=== PATIENT | female | born 1975 | race Caucasian/White ===

== ENCOUNTER 2016-10-27 21:57 | Emergency (ER) | payer OTHER ==
[~2016-10-27] VITALS: Ht 157.5 cm; Wt 104.0 kg
[~2016-10-27 21:57] MED LIST: AMBIEN10 MG PO; AMITRIPTYLINE H50 MG PO; ASPIR-LOW81 MG PO; ASPIRIN325 MG PO; ECOTRIN325 MG PO; ELAVIL50 MG PO; ENDOCET 5-3251 EACH PO; ESTRADIOL2 MG PO; Ecotrin PO; FLONASE16 G1 BOTH NARES; GABAPENTIN100 MG PO; GABAPENTIN300 MG PO; HYDROCODON-ACE1 EA13 PO; HYDROCODON-ACE1 EAC8 PO; LAMICTAL XR100 MG PO; LAMICTAL XR200 MG PO; LAMICTAL200 MG PO; LAMICTAL25 MG PO; LO-DOSE ASPIRIN81 M2 PO; LaMICtal PO; NORCO 5/3251 TABLET PO; NORCO 7.5/321 TABLET PO; PLAVIX75 MG PO; PRAVASTATIN SOD80 MG PO; SEROQUEL12.5 MG PO; SOMA350 MG PO; STADOL NASAL2.5 ML NS; SUMATRIPTA6 MG/0.51 SC; TOPAMAX100 MG PO; Toprol XL PO; VICODIN HP 11 TABLET PO; VICODIN,LORT1 TABLET PO; Zocor PO
[2016-10-27 23:18] LABS: EOSINOPHIL (%) 0.8 % (0-5); EOSINOPHIL COUNT 0.1 K/uL (0-0.3); HEMATOCRIT 40.8 % (36.0-46.0); IMMATURE GRANULOCYTE (%) 0.1 % (0.0-0.7); INSTRUMENT ABS NEUTROPHIL CT 4.5 K/uL; LYMPHOCYTE COUNT 2.5 K/uL (1.0-2.8); MCH 29.6 PG (29.0-34.0); MCHC 33.6 G/DL (30.0-36.0); MCV 88.1 FL (83-99); MEAN PLAT.VOLUME 9.8 uM^3 (9.5-12.4); MONOCYTE (%) 7.1 % (3-12); MONOCYTE COUNT 0.5 K/uL (0-0.8); NEUTROPHIL (%) 58.8 % (45-76); NEUTROPHIL COUNT 4.5 K/uL (1.8-6.4); PLATELET COUNT 288 K/uL (156-360); RBC DIS.WIDTH-CV 13.3 % (11.8-14.6); RBC DIS.WIDTH-SD 43.3 % (39-53); RED BLOOD COUNT 4.63 M/uL (3.80-5.20); WHITE BLOOD COUNT 7.6 K/uL (4.1-10.2)
[2016-10-27 23:31] LABS: CHLORIDE 105 mEq/L (99-109); POTASSIUM 4.1 mEq/L (3.7-5.4); SODIUM 139 mEq/L (136-147)
[2016-10-27 23:33] LABS: GLUCOSE 100 mg/dL (70-99)
[2016-10-27 23:35] LABS: ANION GAP 11 MEQ/L (2-14)
[2016-10-27 23:37] LABS: GFR ESTIMATE (CALCULATED) > 59 mL/min/
[2016-10-27 23:38] LABS: UREA NITROGEN (BUN) 20 mg/dL (9-23)
[2016-10-27 23:41] LABS: INTER. NORMALIZED RATIO 1.1; PROTHROMBIN TIME 10.8 (9.2-11.2); PTT 27.9 (25-32)
[2016-10-28 00:21] LABS: HDL CHOLESTEROL 43 MG/DL (Desirable>=50); LDL CHOLESTEROL 129 mg/dL (Desirable<100); NON-HDL CHOLESTEROL 167 mg/dL (Desirable<160); TOTAL CHOLESTEROL 210 mg/dL (Desirable<200); TRIGLYCERIDES 191 MG/DL (Normal: <150)
[2016-10-28 00:25] LABS: SAMPLE HEMOLYSIS CHECK 0; SAMPLE ICTERIC CHECK 0; SAMPLE LIPEMIA CHECK 0
[2016-10-28 00:40] LABS: QUANTITATIVE HCG < 4.0 MIU/ML
[2016-10-28 00:42] LABS: ADD MIUA? YES; BILIRUBIN NEGATIVE; BLOOD NEGATIVE; COLOR STRAW ((YELLOW)); GLUCOSE (STRIP) NEGATIVE; KETONES NEGATIVE; LEUKOCYTES TRACE; NITRITE NEGATIVE; PROTEIN (STRIP) NEGATIVE; SPECIFIC GRAVITY 1.025 (1.000-1.030); UROBILINOGEN 0.2 MG/DL (0.2-1.0)
[2016-10-28 00:48] LABS: BACTERIA NONE SEEN /HPF; EPITHELIAL CELLS 1+ /HPF; MUCUS TRACE /LPF; RED BLOOD CELLS 0-5 /HPF (0-5); UCUL ADDED? NO; WHITE BLOOD CELLS 0-5 /HPF (0-5)
[2016-10-28 02:00] VITALS: BP 168/103
[2016-10-28 07:31] LABS: Estimated Average Glucose 105 mg/dL (70-123); HEMOGLOBIN A1c (GLYCOHEMOGLOB) 5.3 % HGB (Below 5.7)
== END 2016-10-28 02:02 | disposition short-term general hospital (02) ==
LOC: EME 21:57
PROVIDERS: Emergency Medicine
DX: I63.9 Cerebral infarction, unspecified (principal); R51 Headache; G40.909 Epilepsy, unspecified, not intractable, without status epilepticus; Z86.73 Personal history of transient ischemic attack (TIA), and cerebral infarction without residual deficits; Z79.01 Long term (current) use of anticoagulants; Z87.442 Personal history of urinary calculi
CPT/HCPCS: 70450; 70496; 70498; 80048; 80061; 81003; 83036; 84702; 85025; 85610; 85730; 93005; 99281; 99285; J0780; J1170; J1200; J7030; J7050

== ENCOUNTER 2016-11-02 03:22 | Emergency (ER) | payer OTHER ==
[~2016-11-02] VITALS: Ht 154.9 cm; Wt 102.0 kg
[2016-11-02 04:37] LABS: HEMATOCRIT 41.3 % (36.0-46.0); MCHC 32.9 G/DL (30.0-36.0); MEAN PLAT.VOLUME 10.1 uM^3 (9.5-12.4); PLATELET COUNT 254 K/uL (156-360); RBC DIS.WIDTH-CV 13.5 % (11.8-14.6); RBC DIS.WIDTH-SD 45.5 % (39-53); RED BLOOD COUNT 4.54 M/uL (3.80-5.20)
[2016-11-02 04:48] LABS: CHLORIDE 110 mEq/L (99-109); INTER. NORMALIZED RATIO 1.1; POTASSIUM 4.1 mEq/L (3.7-5.4); PTT 20.2 (25-32); SODIUM 140 mEq/L (136-147)
[2016-11-02 04:50] LABS: GLUCOSE 94 mg/dL (70-99)
[2016-11-02 04:51] LABS: ANION GAP 9 MEQ/L (2-14)
[2016-11-02 04:52] LABS: TOTAL BILIRUBIN 0.4 mg/dL (0.0-1.0)
[2016-11-02 04:53] LABS: ALKALINE PHOSPHATASE 87 IU/L (3-129)
[2016-11-02 04:54] LABS: GFR ESTIMATE (CALCULATED) > 59 mL/min/
[2016-11-02 04:55] LABS: UREA NITROGEN (BUN) 16 mg/dL (9-23)
[2016-11-02 04:57] LABS: LIPASE 9 U/L (1.0-51.0)
[2016-11-02 06:31] VITALS: BP 117/64
== END 2016-11-02 06:31 | disposition home or self-care (01) ==
LOC: EME 03:22
PROVIDERS: Emergency Medicine
DX: R10.31 Right lower quadrant pain (principal); M25.552 Pain in left hip; G89.18 Other acute postprocedural pain; Z98.890 Other specified postprocedural states; Z79.02 Long term (current) use of antithrombotics/antiplatelets; Z79.82 Long term (current) use of aspirin
CPT/HCPCS: 74177; 80053; 83690; 85027; 85610; 85730; 93926; 99281; 99285; J2270; J2405

== ENCOUNTER 2016-11-23 17:51 | Inpatient (IN) | payer OTHER ==
[~2016-11-23] VITALS: Ht 154.9 cm; Wt 102.3 kg
[2016-11-23] MEDS ORDERED: OXAYDO5 MG PO (18:53)
[2016-11-23 18:56] LABS: EOSINOPHIL (%) 0.8 % (0-5); EOSINOPHIL COUNT 0.1 K/uL (0-0.3); HEMATOCRIT 42.1 % (36.0-46.0); IMMATURE GRANULOCYTE (%) 0.3 % (0.0-0.7); INSTRUMENT ABS NEUTROPHIL CT 5.7 K/uL; LYMPHOCYTE COUNT 1.3 K/uL (1.0-2.8); MCH 29.9 PG (29.0-34.0); MCHC 33.3 G/DL (30.0-36.0); MCV 89.8 FL (83-99); MONOCYTE (%) 4.7 % (3-12); MONOCYTE COUNT 0.4 K/uL (0-0.8); NEUTROPHIL (%) 76.7 % (45-76); NEUTROPHIL COUNT 5.7 K/uL (1.8-6.4); RBC DIS.WIDTH-CV 13.6 % (11.8-14.6); RBC DIS.WIDTH-SD 44.5 % (39-53); RED BLOOD COUNT 4.69 M/uL (3.80-5.20); WHITE BLOOD COUNT 7.4 K/uL (4.1-10.2)
[2016-11-23 19:03] LABS: AMYLASE 33 IU/L (1-118); CHLORIDE 105 mEq/L (99-109); POTASSIUM 3.9 mEq/L (3.7-5.4); SODIUM 137 mEq/L (136-147)
[2016-11-23 19:05] LABS: GLUCOSE 117 mg/dL (70-99)
[2016-11-23 19:06] LABS: ANION GAP 11 MEQ/L (2-14)
[2016-11-23 19:07] LABS: INTER. NORMALIZED RATIO 1.1; PROTHROMBIN TIME 10.7 (9.2-11.2); PTT 22.1 (25-32)
[2016-11-23 19:08] LABS: GFR ESTIMATE (CALCULATED) > 59 mL/min/; SERUM ETHYL ALCOHOL < 10 mg/dL
[2016-11-23 19:09] LABS: UREA NITROGEN (BUN) 16 mg/dL (9-23)
[2016-11-23 19:11] LABS: LIPASE 33 U/L (1.0-51.0)
[2016-11-23 19:15] LABS: TROP-I INTERPRETATION NEGATIVE; TROPONIN-I < 0.01 ng/mL (0.0-0.30)
[2016-11-23 19:17] LABS: QUANTITATIVE HCG < 4.0 MIU/ML
[2016-11-23 19:40] LABS: ABS NEUTROPHIL COUNT 5.5; ANISOCYTOSIS 2+; EOSINOPHIL ABS CT 0; PLATELET CLUMPS PRESENT - PLATELET COUNT APPEARS ADQ.; PLATELET COUNT UNABLE TO REPORT K/uL (156-360)
[2016-11-23 19:40] LABS: ADD MIUA? NO; BILIRUBIN NEGATIVE; BLOOD NEGATIVE; COLOR YELLOW ((YELLOW)); GLUCOSE (STRIP) NEGATIVE; KETONES NEGATIVE; LEUKOCYTES NEGATIVE; NITRITE NEGATIVE; PROTEIN (STRIP) NEGATIVE; SPECIFIC GRAVITY 1.039 (1.000-1.030); UCUL ADDED? NO; UROBILINOGEN 0.2 MG/DL (0.2-1.0)
[2016-11-23] MEDS ORDERED: LIPITOR80 MG PO (19:42)
[2016-11-23] MEDS ORDERED: LEXAPRO20 MG PO (19:43)
[2016-11-23] MEDS ORDERED: MELOXICAM15 MG PO (19:43)
[2016-11-23] MEDS ORDERED: PERCOCET 5/31 TABLET PO (19:43)
[2016-11-23] MEDS ORDERED: ALPRAZOLAM0.5 MG PO (19:44)
[2016-11-23 19:54] LABS: ADD MEDTOX COMMENT Y; AMPHETAMINE NEGATIVE (500 ng/mL); BARBITURATES NEGATIVE (200 ng/mL); BENZODIAZEPINES PRESUMPTIVE POSITIVE (150 ng/mL); COCAINE NEGATIVE (150 ng/mL); INTERNAL CONTROLS VALID? YES; METHADONE NEGATIVE (200 ng/mL); METHAMPHETAMINE NEGATIVE (500 ng/mL); OPIATES (MORPHINE) NEGATIVE (100 ng/mL); OXYCODONE NEGATIVE (100 ng/mL); PHENCYCLIDINE NEGATIVE (25 ng/mL); PROPOXYPHENE NEGATIVE (300 ng/mL); THC CANNABINOIDS NEGATIVE (50 ng/mL); TRICYCLIC ANTIDEPRESSANTS NEGATIVE (300 ng/mL)
[2016-11-23 20:20] LABS: BENZODIAZEPINES, URINE SCREEN POSITIVE (200 ng/mL)
[2016-11-23 22:10] LABS: HDL CHOLESTEROL 47 MG/DL (Desirable>=50); LDL CHOLESTEROL 252 mg/dL (Desirable<100); NON-HDL CHOLESTEROL 309 mg/dL (Desirable<160); TOTAL CHOLESTEROL 356 mg/dL (Desirable<200); TRIGLYCERIDES 283 MG/DL (Normal: <150)
[2016-11-23 22:22] VITALS: BP 126/70
[2016-11-24 03:25] VITALS: BP 139/84
[2016-11-24 06:40] LABS: MCH 30.4 PG (29.0-34.0); MCHC 33.3 G/DL (30.0-36.0); MCV 91.3 FL (83-99); PLATELET COUNT 292 K/uL (156-360); RBC DIS.WIDTH-CV 14.1 % (11.8-14.6); RBC DIS.WIDTH-SD 47.6 % (39-53); RED BLOOD COUNT 4.71 M/uL (3.80-5.20); WHITE BLOOD COUNT 7.2 K/uL (4.1-10.2)
[2016-11-24 06:48] LABS: ALKALINE PHOSPHATASE 113 IU/L (3-129); ANION GAP 8 MEQ/L (2-14); CHLORIDE 107 MEQ/L (99-109); GFR ESTIMATE (CALCULATED) > 59 mL/min/; GLUCOSE 89 mg/dL (70-99); SAMPLE HEMOLYSIS CHECK 0; SAMPLE ICTERIC CHECK 0; SAMPLE LIPEMIA CHECK 0; SODIUM 139 MEQ/L (136-147); TOTAL BILIRUBIN 0.4 MG/DL (0.0-1.0); UREA NITROGEN (BUN) 19 mg/dL (9-23)
[2016-11-24 07:23] LABS: Estimated Average Glucose 108 mg/dL (70-123); HEMOGLOBIN A1c (GLYCOHEMOGLOB) 5.4 % HGB (Below 5.7)
[2016-11-24 08:22] VITALS: BP 115/77
[2016-11-24 11:28] VITALS: BP 117/74
[2016-11-24 18:11] VITALS: BP 130/76
[2016-11-24 19:34] VITALS: BP 114/62
[2016-11-25 03:54] VITALS: BP 111/53
[2016-11-25 08:11] VITALS: BP 126/78
[2016-11-25] MEDS ORDERED: CLOPIDOGREL75 MG PO (09:26)
[2016-11-25] MEDS ORDERED: STADOL NASAL2.5 ML NS (11:16)
== END 2016-11-25 13:30 | disposition home or self-care (01) | DRG 65 ==
LOC: EME 17:51 → 5SOUTH 20:40 → EDOF 20:40 → 5SOUTH 21:46
PROVIDERS: Emergency Medicine; Internal Medicine
DX: I63.9 Cerebral infarction, unspecified (principal); I67.5 Moyamoya disease; G93.89 Other specified disorders of brain; G81.94 Hemiplegia, unspecified affecting left nondominant side; G40.909 Epilepsy, unspecified, not intractable, without status epilepticus; I65.21 Occlusion and stenosis of right carotid artery; M79.7 Fibromyalgia; Z68.41 Body mass index [BMI] 40.0-44.9, adult; Z86.73 Personal history of transient ischemic attack (TIA), and cerebral infarction without residual deficits; Z87.442 Personal history of urinary calculi; F41.9 Anxiety disorder, unspecified; G43.109 Migraine with aura, not intractable, without status migrainosus
CPT/HCPCS: 70450; 70496; 70498; 80048; 80053; 80061; 81003; 82150; 83036; 83690; 84484; 84702; 84999; 85025; 85027; 85610; 85730; 86900; 86901; 92523 GN; 99281; 99285; G0480; J1170; J1644; J2270

== ENCOUNTER 2017-01-01 17:46 | Observation (INO) | payer OTHER ==
[~2017-01-01] VITALS: Ht 154.9 cm; Wt 102.2 kg
[~2017-01-01 17:46] MED LIST changes: +ALPRAZOLAM0.5 MG PO; +CLOPIDOGREL75 MG PO; -GABAPENTIN300 MG PO; +GABAPENTIN400 MG PO; +LEXAPRO20 MG PO; +LIPITOR80 MG PO; +MELOXICAM15 MG PO; +OXAYDO5 MG PO; +PERCOCET 5/31 TABLET PO
[2017-01-01 18:40] LABS: EOSINOPHIL (%) 0.2 % (0-5); HEMATOCRIT 42.1 % (36.0-46.0); IMMATURE GRANULOCYTE (%) 0.6 % (0.0-0.7); IMMATURE GRANULOCYTE COUNT 0.1 K/uL; INSTRUMENT ABS NEUTROPHIL CT 6.1 K/uL; LYMPHOCYTE COUNT 1.6 K/uL (1.0-2.8); MCH 29.8 PG (29.0-34.0); MCV 90.3 FL (83-99); MEAN PLAT.VOLUME 9.5 uM^3 (9.5-12.4); MONOCYTE (%) 4.4 % (3-12); MONOCYTE COUNT 0.4 K/uL (0-0.8); NEUTROPHIL (%) 75.3 % (45-76); NEUTROPHIL COUNT 6.1 K/uL (1.8-6.4); PLATELET COUNT 264 K/uL (156-360); RBC DIS.WIDTH-CV 13.2 % (11.8-14.6); RBC DIS.WIDTH-SD 43.5 % (39-53); RED BLOOD COUNT 4.66 M/uL (3.80-5.20); WHITE BLOOD COUNT 8.1 K/uL (4.1-10.2)
[2017-01-01 18:46] LABS: PROTHROMBIN TIME 10.5 SEC (10.2-12.9)
[2017-01-01 18:49] LABS: CHLORIDE 108 mEq/L (99-109); POTASSIUM 3.7 mEq/L (3.7-5.4); PTT 28.5 SEC (25-37); SODIUM 142 mEq/L (136-147)
[2017-01-01 18:50] LABS: GLUCOSE 105 mg/dL (70-99)
[2017-01-01 18:52] LABS: ANION GAP 10 MEQ/L (2-14)
[2017-01-01 18:54] LABS: GFR ESTIMATE (CALCULATED) > 59 mL/min/
[2017-01-01 18:55] LABS: UREA NITROGEN (BUN) 12 mg/dL (9-23)
[2017-01-01 19:21] LABS: Estimated Average Glucose 103 mg/dL (70-123); HEMOGLOBIN A1c (GLYCOHEMOGLOB) 5.2 % HGB (Below 5.7)
[2017-01-01] MEDS ORDERED: PLAVIX75 MG PO (19:39)
[2017-01-01 20:26] LABS: ADD MIUA? YES; BILIRUBIN NEGATIVE; BLOOD NEGATIVE; COLOR YELLOW ((YELLOW)); GLUCOSE (STRIP) NEGATIVE; KETONES NEGATIVE; LEUKOCYTES MODERATE; NITRITE NEGATIVE; PROTEIN (STRIP) 30; SPECIFIC GRAVITY 1.013 (1.000-1.030); UROBILINOGEN 0.2 MG/DL (0.2-1.0)
[2017-01-01 20:31] LABS: BACTERIA NONE SEEN /HPF; EPITHELIAL CELLS RARE /HPF; MUCUS TRACE /LPF; RED BLOOD CELLS NONE SEEN /HPF (0-5); UCUL ADDED? YES; WHITE BLOOD CELLS 20-30 /HPF (0-5)
[2017-01-01 20:48] LABS: AMPHETAMINE NEGATIVE (500 ng/mL); BARBITURATES NEGATIVE (200 ng/mL); BENZODIAZEPINES NEGATIVE (150 ng/mL); COCAINE NEGATIVE (150 ng/mL); INTERNAL CONTROLS VALID? YES; METHADONE NEGATIVE (200 ng/mL); METHAMPHETAMINE NEGATIVE (500 ng/mL); OPIATES (MORPHINE) NEGATIVE (100 ng/mL); OXYCODONE PRESUMPTIVE POSITIVE (100 ng/mL); PHENCYCLIDINE NEGATIVE (25 ng/mL); PROPOXYPHENE NEGATIVE (300 ng/mL); THC CANNABINOIDS NEGATIVE (50 ng/mL); TRICYCLIC ANTIDEPRESSANTS NEGATIVE (300 ng/mL)
[2017-01-01 21:13] LABS: HDL CHOLESTEROL 51 MG/DL (Desirable>=50); LDL CHOLESTEROL 54 mg/dL (Desirable<100); NON-HDL CHOLESTEROL 83 mg/dL (Desirable<160); TOTAL CHOLESTEROL 134 mg/dL (Desirable<200); TRIGLYCERIDES 144 MG/DL (Normal: <150)
[2017-01-01 22:31] VITALS: BP 131/66
[2017-01-02 05:06] VITALS: BP 125/72
[2017-01-02 05:06] LABS: POINT-OF-CARE METER ID UU13113831
[2017-01-02 05:59] LABS: HEMATOCRIT 38.9 % (36.0-46.0); MCH 30.4 PG (29.0-34.0); MCHC 32.9 G/DL (30.0-36.0); MCV 92.4 FL (83-99); MEAN PLAT.VOLUME 9.7 uM^3 (9.5-12.4); PLATELET COUNT 273 K/uL (156-360); RBC DIS.WIDTH-CV 13.4 % (11.8-14.6); RBC DIS.WIDTH-SD 45.6 % (39-53); RED BLOOD COUNT 4.21 M/uL (3.80-5.20); WHITE BLOOD COUNT 7.9 K/uL (4.1-10.2)
[2017-01-02 08:21] VITALS: BP 118/57
[2017-01-02] MEDS ORDERED: LAMICTAL200 MG PO (11:44)
[2017-01-02 11:50] VITALS: BP 130/88
[2017-01-02 16:42] VITALS: BP 127/83
[2017-01-02 20:00] VITALS: BP 145/96
== END 2017-01-02 20:57 | disposition home or self-care (01) ==
LOC: EME 17:46 → 5WEST 20:30 → ENRESERV 20:32 → EDOF 20:50 → ENRESERV 20:50 → 5WEST 22:00
PROVIDERS: Emergency Medicine; Hospitalist
DX: R56.9 Unspecified convulsions (principal); Z86.73 Personal history of transient ischemic attack (TIA), and cerebral infarction without residual deficits; E66.01 Morbid (severe) obesity due to excess calories; Z68.41 Body mass index [BMI] 40.0-44.9, adult; R51 Headache; R20.0 Anesthesia of skin; R53.1 Weakness; T42.76XA Underdosing of unspecified antiepileptic and sedative-hypnotic drugs, initial encounter; Z91.128 Patient's intentional underdosing of medication regimen for other reason; Z98.890 Other specified postprocedural states; Z88.1 Allergy status to other antibiotic agents; Z91.09 Other allergy status, other than to drugs and biological substances; Z88.8 Allergy status to other drugs, medicaments and biological substances
CPT/HCPCS: 70450; 80048; 80061; 80306 90; 81003; 82948; 83036; 84702; 85025; 85027; 85610; 85730; 87086; 93005; G0378; J1170; J1650; J3010

== ENCOUNTER 2017-06-07 01:26 | Inpatient (IN) | payer OTHER ==
[~2017-06-07] VITALS: Ht 152.4 cm; Wt 99.8 kg
[~2017-06-07 01:26] MED LIST changes: +PERCOCET 10/1 TABLET PO; -PERCOCET 5/31 TABLET PO
[2017-06-07 02:08] LABS: BASOPHIL (%) 0.4 % (0-1); EOSINOPHIL (%) 1.4 % (0-5); EOSINOPHIL COUNT 0.1 K/uL (0-0.3); HEMATOCRIT 40.8 % (36.0-46.0); HEMOGLOBIN 13.6 G/DL (11.9-15.5); IMMATURE GRANULOCYTE (%) 0.3 % (0.0-0.7); LYMPHOCYTE (%) 32.4 % (15-42); LYMPHOCYTE COUNT 2.6 K/uL (1.0-2.8); MCH 30.6 PG (29.0-34.0); MCHC 33.3 G/DL (30.0-36.0); MCV 91.7 FL (83-99); MONOCYTE (%) 5.3 % (3-12); MONOCYTE COUNT 0.4 K/uL (0-0.8); NEUTROPHIL (%) 60.2 % (45-76); NEUTROPHIL COUNT 4.8 K/uL (1.8-6.4); PLATELET COUNT 295 K/uL (156-360); RBC DIS.WIDTH-CV 13.4 % (11.8-14.6); RBC DIS.WIDTH-SD 45.6 % (39-53); RED BLOOD COUNT 4.45 M/uL (3.80-5.20); WHITE BLOOD COUNT 7.9 K/uL (4.1-10.2)
[2017-06-07 02:17] LABS: AMYLASE 25 IU/L (1-118); CHLORIDE 105 mEq/L (99-109); POTASSIUM 3.9 mEq/L (3.7-5.4); SODIUM 140 mEq/L (136-147)
[2017-06-07 02:19] LABS: GLUCOSE 102 mg/dL (70-99); PTT 29.2 SEC (25-37)
[2017-06-07 02:22] LABS: SERUM ETHYL ALCOHOL < 10 mg/dL
[2017-06-07 02:23] LABS: CREATININE 0.9 mg/dL (0.6-1.3); GFR ESTIMATE (CALCULATED) > 59 mL/min/
[2017-06-07 02:24] LABS: UREA NITROGEN (BUN) 12 mg/dL (9-23)
[2017-06-07 02:26] LABS: LIPASE 10 U/L (1.0-51.0)
[2017-06-07 02:29] LABS: TROP-I INTERPRETATION NEGATIVE; TROPONIN-I < 0.01 ng/mL (0.0-0.30)
[2017-06-07 02:31] LABS: QUANTITATIVE HCG < 4.0 MIU/ML
[2017-06-07 03:43] LABS: HDL CHOLESTEROL 47 MG/DL (Desirable>=50); LDL CHOLESTEROL 113 mg/dL (Desirable<100); NON-HDL CHOLESTEROL 160 mg/dL (Desirable<160); TOTAL CHOLESTEROL 207 mg/dL (Desirable<200); TRIGLYCERIDES 235 MG/DL (Normal: <150)
[2017-06-07 07:37] LABS: HEMATOCRIT 39.5 % (36.0-46.0); HEMOGLOBIN 13.2 G/DL (11.9-15.5); MCH 30.7 PG (29.0-34.0); MCHC 33.4 G/DL (30.0-36.0); MCV 91.9 FL (83-99); PLATELET COUNT 278 K/uL (156-360); RBC DIS.WIDTH-CV 13.3 % (11.8-14.6); RBC DIS.WIDTH-SD 44.8 % (39-53); WHITE BLOOD COUNT 7.3 K/uL (4.1-10.2)
[2017-06-07] MEDS ORDERED: LAMICTAL200 MG PO (10:13)
[2017-06-07 12:30] LABS: TROP-I INTERPRETATION NEGATIVE; TROPONIN-I < 0.01 ng/mL (0.0-0.30)
[2017-06-07 14:23] VITALS: BP 118/63
[2017-06-07 19:24] LABS: TROP-I INTERPRETATION NEGATIVE; TROPONIN-I < 0.01 ng/mL (0.0-0.30)
[2017-06-07 19:41] VITALS: BP 123/79
[2017-06-07 21:10] LABS: HEMOGLOBIN A1c (GLYCOHEMOGLOB) 5.5 % (Below 5.7)
[2017-06-07 23:32] VITALS: BP 127/61
[2017-06-08 03:52] VITALS: BP 130/85
[2017-06-08 07:08] LABS: HEMATOCRIT 42.9 % (36.0-46.0); HEMOGLOBIN 13.6 G/DL (11.9-15.5); MCH 30.1 PG (29.0-34.0); MCHC 31.7 G/DL (30.0-36.0); MCV 94.9 FL (83-99); PLATELET COUNT 264 K/uL (156-360); RBC DIS.WIDTH-CV 13.6 % (11.8-14.6); RBC DIS.WIDTH-SD 47.9 % (39-53); RED BLOOD COUNT 4.52 M/uL (3.80-5.20); WHITE BLOOD COUNT 5.7 K/uL (4.1-10.2)
[2017-06-08 07:45] LABS: CHLORIDE 104 MEQ/L (99-109); CREATININE 0.9 MG/DL (0.6-1.3); GFR ESTIMATE (CALCULATED) > 59 mL/min/; GLUCOSE 96 mg/dL (70-99); POTASSIUM 4.6 MEQ/L (3.7-5.4); SODIUM 140 MEQ/L (136-147); UREA NITROGEN (BUN) 15 mg/dL (9-23)
[2017-06-08 07:46] VITALS: BP 131/87
[2017-06-08 11:38] VITALS: BP 106/55
[2017-06-08 16:07] VITALS: BP 138/90
[2017-06-08 20:31] VITALS: BP 124/76
[2017-06-09 00:04] VITALS: BP 126/80
[2017-06-09 04:07] VITALS: BP 121/80
[2017-06-09 07:36] VITALS: BP 129/80
[2017-06-09 11:43] VITALS: BP 121/61
[2017-06-09] MEDS ORDERED: ELIQUIS5 MG PO (14:41)
[2017-06-09 16:08] VITALS: BP 120/67
== END 2017-06-09 16:55 | disposition home or self-care (01) | DRG 103 ==
LOC: EME 01:26 → 5SOUTH 05:13 → EDOF 05:13 → ENRESERV 05:24 → 5SOUTH 14:14
PROVIDERS: Emergency Medicine; Hospitalist; Physician Assistant
DX: G43.109 Migraine with aura, not intractable, without status migrainosus (principal); E66.01 Morbid (severe) obesity due to excess calories; I69.354 Hemiplegia and hemiparesis following cerebral infarction affecting left non-dominant side; M79.7 Fibromyalgia; Z68.41 Body mass index [BMI] 40.0-44.9, adult; I67.5 Moyamoya disease; Z86.711 Personal history of pulmonary embolism; G40.909 Epilepsy, unspecified, not intractable, without status epilepticus; Z79.82 Long term (current) use of aspirin; F41.8 Other specified anxiety disorders; G93.89 Other specified disorders of brain
CPT/HCPCS: 70450; 70498; 71045; 80048; 80061; 81003; 82150; 83036; 83690; 84484; 84702; 85025; 85027; 85610; 85730; 86850; 86900; 86901; 93005; 93880; 99281; 99285; C1753; G0480; J1170; Q0169

== ENCOUNTER 2017-06-17 13:01 | Emergency (ER) | payer OTHER ==
[~2017-06-17] VITALS: Ht 152.4 cm; Wt 105.0 kg
[~2017-06-17 13:01] MED LIST changes: +ELIQUIS5 MG PO
[2017-06-17 14:17] LABS: HEMATOCRIT 41.4 % (36.0-46.0); HEMOGLOBIN 13.7 G/DL (11.9-15.5); MCHC 33.1 G/DL (30.0-36.0); MCV 90.6 FL (83-99); RBC DIS.WIDTH-CV 12.9 % (11.8-14.6); RBC DIS.WIDTH-SD 42.8 % (39-53); RED BLOOD COUNT 4.57 M/uL (3.80-5.20); WHITE BLOOD COUNT 6.1 K/uL (4.1-10.2)
[2017-06-17 14:25] LABS: AMYLASE 30 IU/L (1-118); CHLORIDE 106 mEq/L (99-109); POTASSIUM 4.2 mEq/L (3.7-5.4); SODIUM 140 mEq/L (136-147)
[2017-06-17 14:26] LABS: GLUCOSE 97 mg/dL (70-99); PTT 29.3 SEC (25-37)
[2017-06-17 14:30] LABS: CREATININE 0.9 mg/dL (0.6-1.3); GFR ESTIMATE (CALCULATED) > 59 mL/min/; SERUM ETHYL ALCOHOL < 10 mg/dL
[2017-06-17 14:31] LABS: UREA NITROGEN (BUN) 15 mg/dL (9-23)
[2017-06-17 14:33] LABS: LIPASE 16 U/L (1.0-51.0)
[2017-06-17 14:37] LABS: TROP-I INTERPRETATION NEGATIVE; TROPONIN-I < 0.01 ng/mL (0.0-0.30)
[2017-06-17 14:39] LABS: QUANTITATIVE HCG < 4.0 MIU/ML
[2017-06-17 15:33] LABS: BASOPHIL (%) 0.3 % (0-1); EOSINOPHIL (%) 0.3 % (0-5); IMMATURE GRANULOCYTE (%) 0.2 % (0.0-0.7); LYMPHOCYTE (%) 17.6 % (15-42); LYMPHOCYTE COUNT 1.1 K/uL (1.0-2.8); MONOCYTE (%) 3.9 % (3-12); MONOCYTE COUNT 0.2 K/uL (0-0.8); NEUTROPHIL (%) 77.7 % (45-76); NEUTROPHIL COUNT 4.8 K/uL (1.8-6.4); PLATELET CLUMPS PRESENT - PLATELET COUNT APPEARS ADQ.; PLATELET COUNT UNABLE TO REPORT K/uL (156-360)
[2017-06-17 16:14] VITALS: BP 148/97
== END 2017-06-17 16:24 | disposition short-term general hospital (02) ==
LOC: EME 13:01
PROVIDERS: Emergency Medicine
DX: I63.511 Cerebral infarction due to unspecified occlusion or stenosis of right middle cerebral artery (principal); I67.5 Moyamoya disease; R53.1 Weakness; R56.9 Unspecified convulsions; F32.9 Major depressive disorder, single episode, unspecified; F41.9 Anxiety disorder, unspecified; Z79.891 Long term (current) use of opiate analgesic; Z79.02 Long term (current) use of antithrombotics/antiplatelets; Z79.82 Long term (current) use of aspirin; Z96.9 Presence of functional implant, unspecified; Z86.73 Personal history of transient ischemic attack (TIA), and cerebral infarction without residual deficits; Z98.890 Other specified postprocedural states; Z88.8 Allergy status to other drugs, medicaments and biological substances; Z88.5 Allergy status to narcotic agent
CPT/HCPCS: 70450; 71045; 80048; 81003; 82150; 83690; 84484; 84702; 85025; 85027; 85610; 85730; 86850; 86900; 86901; 93005; G0480; J3010

== ENCOUNTER 2017-06-27 18:54 | Observation (INO) | payer OTHER ==
[~2017-06-27] VITALS: Ht 154.9 cm; Wt 103.4 kg
[2017-06-27 21:00] LABS: HEMATOCRIT 39.5 % (36.0-46.0); HEMOGLOBIN 13.3 G/DL (11.9-15.5); MCH 30.6 PG (29.0-34.0); MCHC 33.7 G/DL (30.0-36.0); PLATELET COUNT 324 K/uL (156-360); RBC DIS.WIDTH-CV 13.3 % (11.8-14.6); RBC DIS.WIDTH-SD 44.3 % (39-53); RED BLOOD COUNT 4.34 M/uL (3.80-5.20); WHITE BLOOD COUNT 5.9 K/uL (4.1-10.2)
[2017-06-27 21:11] LABS: CHLORIDE 109 mEq/L (99-109); POTASSIUM 3.9 mEq/L (3.7-5.4); SODIUM 139 mEq/L (136-147)
[2017-06-27 21:13] LABS: GLUCOSE 115 mg/dL (70-99); TOTAL PROTEIN 6.8 g/dL (6.4-8.3)
[2017-06-27 21:15] LABS: TOTAL BILIRUBIN 0.2 mg/dL (0.0-1.0)
[2017-06-27 21:16] LABS: ALKALINE PHOSPHATASE 121 IU/L (3-129); CREATININE 0.8 mg/dL (0.6-1.3); GFR ESTIMATE (CALCULATED) > 59 mL/min/
[2017-06-27 21:18] LABS: AST (GOT) 13 IU/L (2-34); UREA NITROGEN (BUN) 14 mg/dL (9-23)
[2017-06-27 21:19] LABS: ALT (GPT) 17 IU/L (3-49)
[2017-06-28] MEDS ORDERED: CARISOPRODOL350 MG PO (00:39)
[2017-06-28] MEDS ORDERED: LAMOTRIGINE200 MG PO (00:40)
[2017-06-28] MEDS ORDERED: OXYCODONE-APAP1 EACH PO (00:42)
[2017-06-28] MEDS ORDERED: ZOLPIDEM TARTRA10 MG PO (00:43)
[2017-06-28] MEDS ORDERED: AMOX TR-K CLV1 EAC4 PO (00:45)
[2017-06-28] MEDS ORDERED: BOTOX200 UNIT IJ (00:50)
[2017-06-28] MEDS ORDERED: ESCITALOPRAM OX20 MG PO (00:51)
[2017-06-28] MEDS ORDERED: MORPHINE SULFAT15 M1 PO (00:59)
[2017-06-28] MEDS ORDERED: ATORVASTATIN CA80 MG PO (01:01)
[2017-06-28 02:45] VITALS: BP 138/87
[2017-06-28 07:18] VITALS: BP 116/64
[2017-06-28 11:40] VITALS: BP 132/87
[2017-06-28 20:00] VITALS: BP 106/57
[2017-06-29] VITALS: BP 114/67
[2017-06-29 03:37] VITALS: BP 116/69
[2017-06-29 08:20] VITALS: BP 115/70
[2017-06-29 12:45] VITALS: BP 115/67
[2017-06-29 16:52] VITALS: BP 127/78
[2017-06-29 19:15] VITALS: BP 117/69
[2017-06-30 00:44] VITALS: BP 120/76
[2017-06-30 04:18] VITALS: BP 114/74
[2017-06-30 07:26] VITALS: BP 111/61
[2017-06-30 12:13] VITALS: BP 137/68
[2017-06-30] MEDS ORDERED: DILAUDID4 MG PO (16:23)
[2017-06-30 16:34] VITALS: BP 126/86
== END 2017-06-30 17:35 | disposition home or self-care (01) ==
LOC: EME → EDBD 18:54 → 5WEST 06-28 00:14 → EDOF 06-28 00:14 → ENRESERV 06-28 00:18 → 5WEST 06-28 02:42
PROVIDERS: Emergency Medicine
DX: R53.1 Weakness (principal); G43.109 Migraine with aura, not intractable, without status migrainosus; I67.5 Moyamoya disease; G40.909 Epilepsy, unspecified, not intractable, without status epilepticus; I69.354 Hemiplegia and hemiparesis following cerebral infarction affecting left non-dominant side; Q27.30 Arteriovenous malformation, site unspecified; E66.01 Morbid (severe) obesity due to excess calories; Z68.41 Body mass index [BMI] 40.0-44.9, adult; Z88.0 Allergy status to penicillin; Z88.5 Allergy status to narcotic agent; Z88.8 Allergy status to other drugs, medicaments and biological substances; Z91.048 Other nonmedicinal substance allergy status; F41.8 Other specified anxiety disorders
CPT/HCPCS: 70450; 80053; 85027; 93005; 99281; 99285; G0378; J1170; J1650; J2270; J2405; J2765; Q0169

== ENCOUNTER 2017-07-08 10:38 | Observation (INO) | payer OTHER ==
[~2017-07-08] VITALS: Ht 154.9 cm; Wt 100.2 kg
[~2017-07-08 10:38] MED LIST changes: +AMOX TR-K CLV1 EAC4 PO; +ATORVASTATIN CA80 MG PO; +BOTOX200 UNIT IJ; +CARISOPRODOL350 MG PO; +DILAUDID4 MG PO; +ESCITALOPRAM OX20 MG PO; +LAMOTRIGINE200 MG PO; +MORPHINE SULFAT15 M1 PO; +OXYCODONE-APAP1 EACH PO; +ZOLPIDEM TARTRA10 MG PO
[2017-07-08 12:31] LABS: BASOPHIL (%) 0.1 % (0-1); EOSINOPHIL (%) 0.4 % (0-5); HEMATOCRIT 46.4 % (36.0-46.0); IMMATURE GRANULOCYTE (%) 0.4 % (0.0-0.7); LYMPHOCYTE (%) 21.1 % (15-42); LYMPHOCYTE COUNT 1.7 K/uL (1.0-2.8); MCH 30.8 PG (29.0-34.0); MCHC 33.6 G/DL (30.0-36.0); MCV 91.5 FL (83-99); MONOCYTE (%) 5.2 % (3-12); MONOCYTE COUNT 0.4 K/uL (0-0.8); NEUTROPHIL (%) 72.8 % (45-76); NEUTROPHIL COUNT 5.9 K/uL (1.8-6.4); PLATELET COUNT 302 K/uL (156-360); RBC DIS.WIDTH-CV 13.4 % (11.8-14.6); RBC DIS.WIDTH-SD 45.3 % (39-53); RED BLOOD COUNT 5.07 M/uL (3.80-5.20); WHITE BLOOD COUNT 8.1 K/uL (4.1-10.2)
[2017-07-08 12:32] LABS: HEMOGLOBIN 15.6 G/DL (11.9-15.5)
[2017-07-08 12:36] LABS: INTER. NORMALIZED RATIO 1.8
[2017-07-08 12:38] LABS: CHLORIDE 108 mEq/L (99-109); POTASSIUM 3.9 mEq/L (3.7-5.4); SODIUM 142 mEq/L (136-147)
[2017-07-08 12:39] LABS: PTT 38.1 SEC (25-37)
[2017-07-08 12:40] LABS: GLUCOSE 110 mg/dL (70-99)
[2017-07-08 12:43] LABS: CREATININE 0.8 mg/dL (0.6-1.3); GFR ESTIMATE (CALCULATED) > 59 mL/min/; SERUM ETHYL ALCOHOL < 10 mg/dL
[2017-07-08 12:44] LABS: UREA NITROGEN (BUN) 18 mg/dL (9-23)
[2017-07-08 12:46] LABS: LIPASE 27 U/L (1.0-51.0)
[2017-07-08 12:53] LABS: QUANTITATIVE HCG < 4.0 MIU/ML
[2017-07-08 12:56] LABS: AMYLASE 44 IU/L (1-118)
[2017-07-08] MEDS ORDERED: GABAPENTIN400 MG PO (13:58)
[2017-07-08] MEDS ORDERED: MORPHINE SULFAT15 M1 PO (13:58)
[2017-07-08] MEDS ORDERED: ATORVASTATIN CA80 MG PO (14:01)
[2017-07-08 14:06] LABS: APPEARANCE CLEAR ((CLEAR)); BILIRUBIN NEGATIVE; BLOOD NEGATIVE; COLOR YELLOW ((YELLOW)); GLUCOSE (STRIP) NEGATIVE; KETONES NEGATIVE; LEUKOCYTES SMALL; NITRITE NEGATIVE; PROTEIN (STRIP) NEGATIVE; SPECIFIC GRAVITY 1.042 (1.000-1.030); UROBILINOGEN 0.2 MG/DL (0.2-1.0)
[2017-07-08 14:21] LABS: AMPHETAMINE NEGATIVE (500 ng/mL); BACTERIA NONE SEEN /HPF; BARBITURATES NEGATIVE (200 ng/mL); BENZODIAZEPINES PRESUMPTIVE POSITIVE (150 ng/mL); BUPRENORPHINE NEGATIVE (10 ng/mL); COCAINE NEGATIVE (150 ng/mL); EPITHELIAL CELLS 2+ /HPF; METHADONE NEGATIVE (200 ng/mL); METHAMPHETAMINE NEGATIVE (500 ng/mL); MUCUS NONE SEEN /LPF; OPIATES (MORPHINE) NEGATIVE (100 ng/mL); OXYCODONE NEGATIVE (100 ng/mL); PHENCYCLIDINE NEGATIVE (25 ng/mL); PROPOXYPHENE NEGATIVE (300 ng/mL); RED BLOOD CELLS 0-5 /HPF (0-5); THC CANNABINOIDS NEGATIVE (50 ng/mL); TRICYCLIC ANTIDEPRESSANTS NEGATIVE (300 ng/mL); UCUL ADDED? NO; WHITE BLOOD CELLS 0-5 /HPF (0-5)
[2017-07-08 14:47] LABS: TROP-I INTERPRETATION NEGATIVE; TROPONIN-I 0.02 ng/mL (0.0-0.30)
[2017-07-08 15:14] LABS: BENZODIAZEPINES, URINE SCREEN POSITIVE (200 ng/mL)
[2017-07-08 16:34] VITALS: BP 135/86
[2017-07-08 19:05] VITALS: BP 132/68
[2017-07-09 00:10] VITALS: BP 113/74
[2017-07-09 04:14] VITALS: BP 114/59
[2017-07-09 05:49] LABS: HEMATOCRIT 39.1 % (36.0-46.0); MCH 30.3 PG (29.0-34.0); MCHC 32.7 G/DL (30.0-36.0); MCV 92.7 FL (83-99); PLATELET COUNT 308 K/uL (156-360); RBC DIS.WIDTH-CV 13.6 % (11.8-14.6); RBC DIS.WIDTH-SD 46.3 % (39-53); RED BLOOD COUNT 4.22 M/uL (3.80-5.20); WHITE BLOOD COUNT 6.6 K/uL (4.1-10.2)
[2017-07-09 05:50] LABS: HEMOGLOBIN 12.8 G/DL (11.9-15.5)
[2017-07-09 05:51] LABS: CHLORIDE 108 MEQ/L (99-109); CREATININE 0.9 MG/DL (0.6-1.3); GFR ESTIMATE (CALCULATED) > 59 mL/min/; GLUCOSE 100 mg/dL (70-99); SODIUM 141 MEQ/L (136-147); UREA NITROGEN (BUN) 20 mg/dL (9-23)
[2017-07-09 07:35] VITALS: BP 109/60
[2017-07-09 11:36] VITALS: BP 119/77
[2017-07-09] MEDS ORDERED: OXYCODONE-APAP1 EACH PO (12:17)
[2017-07-09] MEDS ORDERED: STADOL NASAL2.5 ML NS (12:17)
[2017-07-09] MEDS ORDERED: LAMOTRIGINE150 MG PO (12:17)
== END 2017-07-09 14:01 | disposition home or self-care (01) ==
LOC: EME 10:38 → EDOF 14:23 → ENRESERV 14:45 → 5WEST 16:19
PROVIDERS: Emergency Medicine; Internal Medicine
DX: G40.909 Epilepsy, unspecified, not intractable, without status epilepticus (principal); G43.109 Migraine with aura, not intractable, without status migrainosus; I67.5 Moyamoya disease; I69.354 Hemiplegia and hemiparesis following cerebral infarction affecting left non-dominant side; I65.21 Occlusion and stenosis of right carotid artery; I66.11 Occlusion and stenosis of right anterior cerebral artery; F32.9 Major depressive disorder, single episode, unspecified; F41.8 Other specified anxiety disorders; Q27.30 Arteriovenous malformation, site unspecified; E66.01 Morbid (severe) obesity due to excess calories; Z68.41 Body mass index [BMI] 40.0-44.9, adult; Z88.1 Allergy status to other antibiotic agents; Z88.5 Allergy status to narcotic agent; Z88.8 Allergy status to other drugs, medicaments and biological substances; Z79.82 Long term (current) use of aspirin
CPT/HCPCS: 70450; 70496; 70498; 71045; 80047; 80048; 81003; 82150; 83690; 84484; 84702; 84999; 85025; 85027; 85610; 85730; 86850; 86900; 86901; 93005; G0378; G0480; J1170; J1650; J2270

== ENCOUNTER 2017-08-02 00:38 | Observation (INO) | payer OTHER ==
[~2017-08-02] VITALS: Ht 154.9 cm; Wt 100.7 kg
[~2017-08-02 00:38] MED LIST changes: +LAMOTRIGINE150 MG PO
[2017-08-02 01:37] LABS: HEMOGLOBIN 12.9 G/DL (11.9-15.5); MCH 30.8 PG (29.0-34.0); MCHC 33.1 G/DL (30.0-36.0); MCV 93.1 FL (83-99); PLATELET COUNT 294 K/uL (156-360); RBC DIS.WIDTH-CV 13.3 % (11.8-14.6); RBC DIS.WIDTH-SD 45.7 % (39-53); RED BLOOD COUNT 4.19 M/uL (3.80-5.20); WHITE BLOOD COUNT 7.7 K/uL (4.1-10.2)
[2017-08-02 01:48] LABS: CHLORIDE 106 mEq/L (99-109); POTASSIUM 3.9 mEq/L (3.7-5.4); SODIUM 140 mEq/L (136-147)
[2017-08-02 01:50] LABS: GLUCOSE 99 mg/dL (70-99)
[2017-08-02 01:52] LABS: TOTAL BILIRUBIN 0.3 mg/dL (0.0-1.0)
[2017-08-02 01:53] LABS: ALKALINE PHOSPHATASE 177 IU/L (3-129)
[2017-08-02 01:54] LABS: CREATININE 0.9 mg/dL (0.6-1.3); GFR ESTIMATE (CALCULATED) > 59 mL/min/
[2017-08-02 01:55] LABS: AST (GOT) 21 IU/L (2-34); UREA NITROGEN (BUN) 17 mg/dL (9-23)
[2017-08-02 01:56] LABS: ALT (GPT) 29 IU/L (3-49)
[2017-08-02 07:02] VITALS: BP 110/57
[2017-08-02 07:30] VITALS: BP 111/59
[2017-08-02 11:00] VITALS: BP 115/83
[2017-08-02] MEDS ORDERED: NEURONTIN400 MG PO (12:19)
[2017-08-02 15:14] VITALS: BP 120/69
[2017-08-02 19:00] VITALS: BP 122/69
[2017-08-03 00:42] VITALS: BP 121/71
[2017-08-03 04:22] VITALS: BP 124/65
[2017-08-03 07:57] VITALS: BP 124/74
[2017-08-03 12:53] VITALS: BP 117/65
[2017-08-03] MEDS ORDERED: OXYCODONE-APAP1 EACH PO (15:46)
== END 2017-08-03 16:42 | disposition home or self-care (01) ==
LOC: EME 00:38 → 5WEST 05:38 → EDOF 05:38 → ENRESERV 05:41 → 5WEST 06:53
PROVIDERS: Emergency Medicine
DX: G43.109 Migraine with aura, not intractable, without status migrainosus (principal); Z86.73 Personal history of transient ischemic attack (TIA), and cerebral infarction without residual deficits; I67.5 Moyamoya disease; Q27.30 Arteriovenous malformation, site unspecified; G40.909 Epilepsy, unspecified, not intractable, without status epilepticus; E66.01 Morbid (severe) obesity due to excess calories; G93.89 Other specified disorders of brain; Z68.41 Body mass index [BMI] 40.0-44.9, adult; Z90.710 Acquired absence of both cervix and uterus; Z90.49 Acquired absence of other specified parts of digestive tract; Z80.6 Family history of leukemia; Z88.8 Allergy status to other drugs, medicaments and biological substances; Z88.5 Allergy status to narcotic agent; Z88.1 Allergy status to other antibiotic agents; Z91.048 Other nonmedicinal substance allergy status
CPT/HCPCS: 70450; 80053; 85027; 99281; 99285; G0378; J1100; J1170; J1200; J1650; J1885; J2270; J2550; Q0169

== ENCOUNTER 2017-08-15 23:30 | Emergency (ER) | payer OTHER ==
[~2017-08-15] VITALS: Ht 154.9 cm; Wt 101.6 kg
[~2017-08-15 23:30] MED LIST changes: +NEURONTIN400 MG PO
[2017-08-15 23:56] LABS: HEMATOCRIT 39.7 % (36.0-46.0); HEMOGLOBIN 13.5 G/DL (11.9-15.5); MCH 30.8 PG (29.0-34.0); MCV 90.6 FL (83-99); PLATELET COUNT 307 K/uL (156-360); RBC DIS.WIDTH-CV 13.1 % (11.8-14.6); RBC DIS.WIDTH-SD 43.7 % (39-53); RED BLOOD COUNT 4.38 M/uL (3.80-5.20); WHITE BLOOD COUNT 8.4 K/uL (4.1-10.2)
[2017-08-16 00:07] LABS: CHLORIDE 105 mEq/L (99-109); POTASSIUM 3.8 mEq/L (3.7-5.4); SODIUM 140 mEq/L (136-147)
[2017-08-16 00:09] LABS: GLUCOSE 112 mg/dL (70-99)
[2017-08-16 00:13] LABS: CREATININE 0.9 mg/dL (0.6-1.3); GFR ESTIMATE (CALCULATED) > 59 mL/min/
[2017-08-16 00:14] LABS: UREA NITROGEN (BUN) 13 mg/dL (9-23)
[2017-08-16] MEDS ORDERED: AMBIEN5 MG PO (04:10)
[2017-08-16 04:31] VITALS: BP 144/91
== END 2017-08-16 04:56 | disposition home or self-care (01) ==
LOC: EME 23:30
PROVIDERS: Emergency Medicine
DX: R51 Headache (principal); R56.9 Unspecified convulsions; F32.9 Major depressive disorder, single episode, unspecified; F41.9 Anxiety disorder, unspecified; M79.7 Fibromyalgia; Z86.73 Personal history of transient ischemic attack (TIA), and cerebral infarction without residual deficits; Z87.442 Personal history of urinary calculi; Z88.1 Allergy status to other antibiotic agents; Z79.02 Long term (current) use of antithrombotics/antiplatelets; Z79.82 Long term (current) use of aspirin
CPT/HCPCS: 80048; 80175 90; 85027; 99281; 99285; J1885; J2060; J2270

== ENCOUNTER 2017-08-25 02:16 | Observation (INO) | payer OTHER ==
[~2017-08-25] VITALS: Ht 154.9 cm; Wt 100.7 kg
[~2017-08-25 02:16] MED LIST changes: +AMBIEN5 MG PO
[2017-08-25 02:30] LABS: BASOPHIL (%) 0.2 % (0-1); EOSINOPHIL (%) 0.5 % (0-5); HEMATOCRIT 42.7 % (36.0-46.0); HEMOGLOBIN 14.4 G/DL (11.9-15.5); IMMATURE GRANULOCYTE (%) 0.3 % (0.0-0.7); LYMPHOCYTE (%) 25.8 % (15-42); LYMPHOCYTE COUNT 2.2 K/uL (1.0-2.8); MCH 30.7 PG (29.0-34.0); MCHC 33.7 G/DL (30.0-36.0); MONOCYTE (%) 5.2 % (3-12); MONOCYTE COUNT 0.5 K/uL (0-0.8); NEUTROPHIL COUNT 5.9 K/uL (1.8-6.4); PLATELET COUNT 359 K/uL (156-360); RBC DIS.WIDTH-SD 43.3 % (39-53); RED BLOOD COUNT 4.69 M/uL (3.80-5.20); WHITE BLOOD COUNT 8.7 K/uL (4.1-10.2)
[2017-08-25 02:40] LABS: INTER. NORMALIZED RATIO 1.1
[2017-08-25 02:42] LABS: PTT 28.8 SEC (25-37)
[2017-08-25 02:43] LABS: AMYLASE 26 IU/L (1-118); CHLORIDE 107 mEq/L (99-109); POTASSIUM 4.1 mEq/L (3.7-5.4); SODIUM 142 mEq/L (136-147)
[2017-08-25 02:45] LABS: GLUCOSE 128 mg/dL (70-99)
[2017-08-25 02:48] LABS: CREATININE 0.8 mg/dL (0.6-1.3); GFR ESTIMATE (CALCULATED) > 59 mL/min/; SERUM ETHYL ALCOHOL < 10 mg/dL
[2017-08-25 02:49] LABS: UREA NITROGEN (BUN) 13 mg/dL (9-23)
[2017-08-25 02:50] LABS: TROP-I INTERPRETATION NEGATIVE; TROPONIN-I < 0.01 ng/mL (0.0-0.30)
[2017-08-25 02:51] LABS: LIPASE 18 U/L (1.0-51.0)
[2017-08-25 02:58] LABS: QUANTITATIVE HCG < 4.0 MIU/ML
[2017-08-25 08:25] VITALS: BP 137/81
[2017-08-25] MEDS ORDERED: LAMICTAL200 MG PO (09:39)
[2017-08-25 11:19] VITALS: BP 137/81
[2017-08-25 15:28] VITALS: BP 126/89
[2017-08-25 20:00] VITALS: BP 130/72
[2017-08-25 23:28] VITALS: BP 135/84
[2017-08-26 03:50] VITALS: BP 119/87
[2017-08-26 08:23] VITALS: BP 118/76
[2017-08-26 11:24] VITALS: BP 143/80
[2017-08-26 12:11] VITALS: BP 138/78
[2017-08-26] MEDS ORDERED: AMITRIPTYLINE H25 MG PO (14:47)
[2017-08-26] MEDS ORDERED: CLINDAMYCIN HC300 MG PO (16:00)
== END 2017-08-26 17:15 | disposition home or self-care (01) ==
LOC: EME 02:16 → EDOF 06:05 → ENRESERV 06:07 → 5WEST 08:13
PROVIDERS: Emergency Medicine
DX: G43.109 Migraine with aura, not intractable, without status migrainosus (principal); Z86.73 Personal history of transient ischemic attack (TIA), and cerebral infarction without residual deficits; I67.5 Moyamoya disease; K04.7 Periapical abscess without sinus; F41.8 Other specified anxiety disorders; G40.909 Epilepsy, unspecified, not intractable, without status epilepticus; E66.01 Morbid (severe) obesity due to excess calories; Z68.41 Body mass index [BMI] 40.0-44.9, adult; Q27.39 Arteriovenous malformation, other site; I65.21 Occlusion and stenosis of right carotid artery; Z79.02 Long term (current) use of antithrombotics/antiplatelets; Z87.442 Personal history of urinary calculi
CPT/HCPCS: 70450; 70496; 70498; 80047; 80048; 81003; 82150; 83690; 84484; 84702; 85025; 85610; 85730; 86850; 86900; 86901; G0378; G0480; J0595; J0780; J1170; J1200; J1650; J1885

== ENCOUNTER 2017-09-14 20:46 | Inpatient (IN) | payer OTHER ==
[~2017-09-14] VITALS: Ht 154.9 cm; Wt 100.0 kg
[~2017-09-14 20:46] MED LIST changes: -ALPRAZOLAM0.5 MG PO; +ALPRAZOLAM1 MG PO; +AMITRIPTYLINE H25 MG PO; +CLINDAMYCIN HC300 MG PO
[2017-09-14 21:51] LABS: HEMATOCRIT 45.9 % (36.0-46.0); HEMOGLOBIN 15.5 G/DL (11.9-15.5); MCH 30.3 PG (29.0-34.0); MCHC 33.8 G/DL (30.0-36.0); MCV 89.6 FL (83-99); NRBC (%) 0.3 /100 WBC (0-0); RBC DIS.WIDTH-CV 12.6 % (11.8-14.6); RBC DIS.WIDTH-SD 41.9 % (39-53); RED BLOOD COUNT 5.12 M/uL (3.80-5.20); WHITE BLOOD COUNT 7.7 K/uL (4.1-10.2)
[2017-09-14 21:59] LABS: CHLORIDE 106 mEq/L (99-109); POTASSIUM 3.6 mEq/L (3.7-5.4); SODIUM 144 mEq/L (136-147)
[2017-09-14 22:01] LABS: GLUCOSE 88 mg/dL (70-99)
[2017-09-14 22:05] LABS: CREATININE 0.8 mg/dL (0.6-1.3); GFR ESTIMATE (CALCULATED) > 59 mL/min/
[2017-09-14 22:06] LABS: UREA NITROGEN (BUN) 12 mg/dL (9-23)
[2017-09-14 22:45] LABS: PLAT.SUFFICIENCY ADEQUATE; PLATELET COUNT 223 K/uL (156-360)
[2017-09-14 22:54] LABS: CARBAMAZEPINE (TEGRETOL) < 2.0 MCG/ML (4.0-12.0); PHENOBARBITAL < 5.0 MCG/ML (15-40)
[2017-09-14] MEDS ORDERED: PERCOCET 10/1 TABLET PO (23:51)
[2017-09-15] VITALS: BP 162/95
[2017-09-15 00:40] LABS: APPEARANCE CLEAR ((CLEAR)); BILIRUBIN NEGATIVE; BLOOD NEGATIVE; COLOR YELLOW ((YELLOW)); GLUCOSE (STRIP) NEGATIVE; KETONES NEGATIVE; LEUKOCYTES NEGATIVE; NITRITE NEGATIVE; PH, URINE 6.5 (5-8); PROTEIN (STRIP) NEGATIVE; SPECIFIC GRAVITY 1.025 (1.000-1.030); UCUL ADDED? NO; UROBILINOGEN 0.2 MG/DL (0.2-1.0)
[2017-09-15 04:18] VITALS: BP 141/73
[2017-09-15 07:46] VITALS: BP 117/73
[2017-09-15 11:19] VITALS: BP 99/52
[2017-09-15 14:00] VITALS: BP 131/69
== END 2017-09-15 14:18 | disposition left against medical advice (07) | DRG 101 ==
LOC: EME → EDBD 20:46 → EME 20:46 → EDOF 09-15 00:30 → ENRESERV 09-15 00:34 → 5EAST 09-15 02:44 → ENRESERV 09-15 02:44 → 5EAST 09-15 14:18
DX: G40.409 Other generalized epilepsy and epileptic syndromes, not intractable, without status epilepticus (principal); G43.109 Migraine with aura, not intractable, without status migrainosus; Z76.5 Malingerer [conscious simulation]; S06.0X9A Concussion with loss of consciousness of unspecified duration, initial encounter; W01.198A Fall on same level from slipping, tripping and stumbling with subsequent striking against other object, initial encounter; I67.5 Moyamoya disease; G93.89 Other specified disorders of brain; R55 Syncope and collapse; I69.354 Hemiplegia and hemiparesis following cerebral infarction affecting left non-dominant side; M79.7 Fibromyalgia; F41.9 Anxiety disorder, unspecified; R32 Unspecified urinary incontinence; E66.01 Morbid (severe) obesity due to excess calories; F31.9 Bipolar disorder, unspecified; M54.2 Cervicalgia; Z87.442 Personal history of urinary calculi
CPT/HCPCS: 70450; 72125; 80048; 80156; 80184; 80185; 81003; 85027; 93005; 95819; 99281; 99285; J1170; J2060; J2405; J7030; J7050; Q0169

== ENCOUNTER 2017-09-29 22:04 | Inpatient (IN) | payer OTHER ==
[~2017-09-29] VITALS: Ht 154.9 cm; Wt 100.9 kg
[2017-09-29 23:40] LABS: HEMATOCRIT 41.9 % (36.0-46.0); HEMOGLOBIN 14.1 G/DL (11.9-15.5); MCH 30.2 PG (29.0-34.0); MCHC 33.7 G/DL (30.0-36.0); MCV 89.7 FL (83-99); RBC DIS.WIDTH-CV 13.2 % (11.8-14.6); RBC DIS.WIDTH-SD 43.7 % (39-53); RED BLOOD COUNT 4.67 M/uL (3.80-5.20); WHITE BLOOD COUNT 8.9 K/uL (4.1-10.2)
[2017-09-29 23:42] LABS: PLATELET COUNT 307 K/uL (156-360)
[2017-09-29 23:49] LABS: CHLORIDE 107 mEq/L (99-109); POTASSIUM 4.2 mEq/L (3.7-5.4)
[2017-09-29 23:50] LABS: SODIUM 142 mEq/L (136-147)
[2017-09-29 23:52] LABS: GLUCOSE 102 mg/dL (70-99); TOTAL PROTEIN 7.2 g/dL (6.4-8.3)
[2017-09-29 23:54] LABS: TOTAL BILIRUBIN 0.3 mg/dL (0.0-1.0)
[2017-09-29 23:55] LABS: ALKALINE PHOSPHATASE 158 IU/L (3-129); CREATININE 0.9 mg/dL (0.6-1.3); GFR ESTIMATE (CALCULATED) > 59 mL/min/
[2017-09-29 23:57] LABS: AST (GOT) 20 IU/L (2-34); UREA NITROGEN (BUN) 10 mg/dL (9-23)
[2017-09-29 23:58] LABS: ALT (GPT) 22 IU/L (3-49)
[2017-09-29 23:59] LABS: CREATINE KINASE 41 IU/L (1-294); LIPASE 17 U/L (1.0-51.0); TOTAL CK 41 IU/L (1-294)
[2017-09-30 00:07] LABS: QUANTITATIVE HCG < 4.0 MIU/ML
[2017-09-30 00:08] LABS: CK-MB 0.6 ng/mL (0.0-4.9); CKMB RELATIVE INDEX 1.5 (0.0-3.9)
[2017-09-30 01:01] LABS: APPEARANCE CLEAR ((CLEAR)); BILIRUBIN NEGATIVE; BLOOD NEGATIVE; COLOR YELLOW ((YELLOW)); GLUCOSE (STRIP) NEGATIVE; KETONES NEGATIVE; LEUKOCYTES NEGATIVE; NITRITE NEGATIVE; PROTEIN (STRIP) NEGATIVE; SPECIFIC GRAVITY 1.017 (1.000-1.030); UCUL ADDED? NO; UROBILINOGEN 0.2 MG/DL (0.2-1.0)
[2017-09-30] MEDS ORDERED: OXYCODONE-APAP1 EACH PO (01:21)
[2017-09-30] MEDS ORDERED: GABAPENTIN400 MG PO (01:23)
[2017-09-30] MEDS ORDERED: STADOL NASAL2.5 ML NS (01:23)
[2017-09-30 03:00] VITALS: BP 144/99
[2017-09-30 07:29] VITALS: BP 144/97
[2017-09-30 11:17] VITALS: BP 133/73
[2017-09-30 12:42] LABS: CREATINE KINASE 32 IU/L (1-294); TOTAL CK 32 IU/L (1-294)
[2017-09-30 12:59] LABS: PROLACTIN 6.3 NG/ML
[2017-09-30] MEDS ORDERED: CLONAZEPAM1 MG PO (13:00)
[2017-09-30 13:19] LABS: CK-MB 0.5 ng/mL (0.0-4.9); CKMB RELATIVE INDEX 1.6 (0.0-3.9)
== END 2017-09-30 15:39 | disposition home or self-care (01) | DRG 103 ==
LOC: EME 22:04 → EDOF 09-30 01:41 → 2EAST 09-30 01:41 → ENRESERV 09-30 01:44 → 2EAST 09-30 02:39
PROVIDERS: Emergency Medicine; Hospitalist
DX: G43.119 Migraine with aura, intractable, without status migrainosus (principal); Z68.41 Body mass index [BMI] 40.0-44.9, adult; I69.354 Hemiplegia and hemiparesis following cerebral infarction affecting left non-dominant side; I67.5 Moyamoya disease; G40.909 Epilepsy, unspecified, not intractable, without status epilepticus; M79.7 Fibromyalgia; G93.89 Other specified disorders of brain; G89.4 Chronic pain syndrome; F41.8 Other specified anxiety disorders; E66.9 Obesity, unspecified; Z76.5 Malingerer [conscious simulation]; Z90.710 Acquired absence of both cervix and uterus; Z91.14 Patient's other noncompliance with medication regimen; Z91.19 Patient's noncompliance with other medical treatment and regimen; Z88.5 Allergy status to narcotic agent; Z80.1 Family history of malignant neoplasm of trachea, bronchus and lung; Z80.6 Family history of leukemia; Z83.3 Family history of diabetes mellitus
CPT/HCPCS: 80053; 81003; 82550; 82553; 83690; 84146; 84702; 85027; 99281; 99284; J1170; J1644; J2060; J2405; J3010; J7030; J7050

== ENCOUNTER 2017-10-14 00:28 | Emergency (ER) | payer OTHER ==
[~2017-10-14] VITALS: Ht 154.9 cm; Wt 105.1 kg
[~2017-10-14 00:28] MED LIST changes: +CLONAZEPAM1 MG PO
[2017-10-14 01:27] LABS: BASOPHIL (%) 0.3 % (0-1); EOSINOPHIL (%) 1.9 % (0-5); EOSINOPHIL COUNT 0.2 K/uL (0-0.3); HEMATOCRIT 41.9 % (36.0-46.0); HEMOGLOBIN 14.2 G/DL (11.9-15.5); IMMATURE GRANULOCYTE (%) 0.3 % (0.0-0.7); LYMPHOCYTE (%) 25.9 % (15-42); LYMPHOCYTE COUNT 2.4 K/uL (1.0-2.8); MCH 30.5 PG (29.0-34.0); MCHC 33.9 G/DL (30.0-36.0); MCV 89.9 FL (83-99); MONOCYTE (%) 7.9 % (3-12); MONOCYTE COUNT 0.7 K/uL (0-0.8); NEUTROPHIL (%) 63.7 % (45-76); NEUTROPHIL COUNT 5.8 K/uL (1.8-6.4); PLATELET COUNT 359 K/uL (156-360); RBC DIS.WIDTH-CV 13.4 % (11.8-14.6); RBC DIS.WIDTH-SD 43.8 % (39-53); RED BLOOD COUNT 4.66 M/uL (3.80-5.20); WHITE BLOOD COUNT 9.1 K/uL (4.1-10.2)
[2017-10-14 01:34] LABS: D-DIMER ELISA < 150.00 ng/mLDDU (<230)
[2017-10-14 01:35] LABS: PTT 27.7 SEC (25-37)
[2017-10-14 01:37] LABS: CHLORIDE 109 mEq/L (99-109); POTASSIUM 3.8 mEq/L (3.7-5.4); SODIUM 140 mEq/L (136-147)
[2017-10-14 01:39] LABS: GLUCOSE 104 mg/dL (70-99)
[2017-10-14 01:43] LABS: CREATININE 0.8 mg/dL (0.6-1.3); GFR ESTIMATE (CALCULATED) > 59 mL/min/; UREA NITROGEN (BUN) 15 mg/dL (9-23)
[2017-10-14 01:48] LABS: TROP-I INTERPRETATION NEGATIVE; TROPONIN-I < 0.01 ng/mL (0.0-0.30)
[2017-10-14 03:58] LABS: TROP-I INTERPRETATION NEGATIVE; TROPONIN-I 0.01 ng/mL (0.0-0.30)
[2017-10-14 04:23] VITALS: BP 110/66
== END 2017-10-14 04:24 | disposition home or self-care (01) ==
LOC: EME → EDBD 00:28 → EME 04:24
PROVIDERS: Emergency Medicine
DX: R07.89 Other chest pain (principal); Z79.02 Long term (current) use of antithrombotics/antiplatelets; F32.9 Major depressive disorder, single episode, unspecified; M79.7 Fibromyalgia; Z87.442 Personal history of urinary calculi; Z86.73 Personal history of transient ischemic attack (TIA), and cerebral infarction without residual deficits; F41.9 Anxiety disorder, unspecified
CPT/HCPCS: 71045; 80048; 84484; 85025; 85379; 85610; 85730; 93005; 99281; 99284

== ENCOUNTER 2017-12-07 00:35 | Observation (INO) | payer OTHER ==
[~2017-12-07] VITALS: Ht 154.9 cm; Wt 107.9 kg
[2017-12-07 01:27] LABS: HEMOGLOBIN 12.8 G/DL (11.9-15.5); MCH 30.2 PG (29.0-34.0); MCHC 33.7 G/DL (30.0-36.0); MCV 89.6 FL (83-99); PLATELET COUNT 308 K/uL (156-360); RBC DIS.WIDTH-CV 13.4 % (11.8-14.6); RED BLOOD COUNT 4.24 M/uL (3.80-5.20)
[2017-12-07 01:41] LABS: CHLORIDE 105 mEq/L (99-109); POTASSIUM 3.9 mEq/L (3.7-5.4); SODIUM 139 mEq/L (136-147)
[2017-12-07 01:43] LABS: GLUCOSE 105 mg/dL (70-99)
[2017-12-07 01:47] LABS: CREATININE 0.9 mg/dL (0.6-1.3); GFR ESTIMATE (CALCULATED) > 59 mL/min/; UREA NITROGEN (BUN) 13 mg/dL (9-23)
[2017-12-07 07:04] LABS: HDL CHOLESTEROL 53 MG/DL (Desirable>=50); LDL CHOLESTEROL 68 mg/dL (Desirable<100); NON-HDL CHOLESTEROL 93 mg/dL (Desirable<160); TOTAL CHOLESTEROL 146 mg/dL (Desirable<200); TRIGLYCERIDES 125 MG/DL (Normal: <150)
[2017-12-07] MEDS ORDERED: ALPRAZOLAM1 MG PO (10:50)
[2017-12-07 10:53] LABS: HEMOGLOBIN A1c (GLYCOHEMOGLOB) 5.5 % (Below 5.7)
[2017-12-07 11:35] VITALS: BP 115/64
[2017-12-07 17:04] VITALS: BP 105/51
[2017-12-07 17:13] VITALS: BP 188/81
[2017-12-07 20:00] VITALS: BP 121/75
[2017-12-07 20:33] LABS: APPEARANCE SL.HAZY ((CLEAR)); BILIRUBIN NEGATIVE; BLOOD SMALL; COLOR YELLOW ((YELLOW)); GLUCOSE (STRIP) NEGATIVE; KETONES NEGATIVE; LEUKOCYTES SMALL; NITRITE NEGATIVE; PROTEIN (STRIP) NEGATIVE; SPECIFIC GRAVITY 1.013 (1.000-1.030); UROBILINOGEN 0.2 MG/DL (0.2-1.0)
[2017-12-07 20:42] LABS: BACTERIA RARE /HPF; EPITHELIAL CELLS 2+ /HPF; MUCUS 2+ /LPF; RED BLOOD CELLS 0-5 /HPF (0-5); UCUL ADDED? YES; WHITE BLOOD CELLS 20-30 /HPF (0-5)
[2017-12-07 20:54] LABS: BENZODIAZEPINES, URINE SCREEN POSITIVE (200 ng/mL)
[2017-12-08] VITALS: BP 118/70
[2017-12-08 04:37] VITALS: BP 130/77
[2017-12-08 07:06] VITALS: BP 101/57
[2017-12-08] MEDS ORDERED: BACTRIM,SEPT1 TABLET PO (09:35)
== END 2017-12-08 11:52 | disposition home or self-care (01) ==
LOC: EME 00:35 → 4SOUTH 05:13 → EDOF 05:13 → ENRESERV 05:15 → 4SOUTH 11:14
PROVIDERS: Hospitalist
DX: G40.909 Epilepsy, unspecified, not intractable, without status epilepticus (principal); G43.109 Migraine with aura, not intractable, without status migrainosus; G89.29 Other chronic pain; M54.9 Dorsalgia, unspecified; I67.5 Moyamoya disease; R82.71 Bacteriuria; Z86.73 Personal history of transient ischemic attack (TIA), and cerebral infarction without residual deficits; E66.01 Morbid (severe) obesity due to excess calories; Z68.41 Body mass index [BMI] 40.0-44.9, adult; Q27.30 Arteriovenous malformation, site unspecified; Z79.82 Long term (current) use of aspirin; G93.89 Other specified disorders of brain; Z88.1 Allergy status to other antibiotic agents; Z88.8 Allergy status to other drugs, medicaments and biological substances
CPT/HCPCS: 70450; 71046; 80048; 80061; 80306 90; 81003; 83036; 85027; 87077; 87086; 87186; 92523 GN; 93005; 99281; 99285; G0378; G9162 GN CJ; G9163 GN CJ; G9164 GN CJ; G9168 GN CI; J1170; J1200; J1650; J2405; J7030

== ENCOUNTER 2017-12-15 19:06 | Observation (INO) | payer OTHER ==
[~2017-12-15] VITALS: Ht 154.9 cm; Wt 108.1 kg
[~2017-12-15 19:06] MED LIST changes: +BACTRIM,SEPT1 TABLET PO
[2017-12-15 21:20] LABS: HEMATOCRIT 41.3 % (36.0-46.0); HEMOGLOBIN 13.7 G/DL (11.9-15.5); MCH 30.2 PG (29.0-34.0); MCHC 33.2 G/DL (30.0-36.0); PLATELET COUNT 334 K/uL (156-360); RBC DIS.WIDTH-CV 13.6 % (11.8-14.6); RBC DIS.WIDTH-SD 46.1 % (39-53); RED BLOOD COUNT 4.54 M/uL (3.80-5.20); WHITE BLOOD COUNT 7.2 K/uL (4.1-10.2)
[2017-12-15 21:28] LABS: PTT 25.3 SEC (25-37)
[2017-12-15 21:36] LABS: ALBUMIN 4.2 g/dL (3.2-4.8); CHLORIDE 104 mEq/L (99-109); POTASSIUM 4.8 mEq/L (3.7-5.4); SODIUM 140 mEq/L (136-147)
[2017-12-15 21:39] LABS: GLUCOSE 98 mg/dL (70-99); TOTAL PROTEIN 7.6 g/dL (6.4-8.3)
[2017-12-15 21:41] LABS: TOTAL BILIRUBIN 0.3 mg/dL (0.0-1.0)
[2017-12-15 21:42] LABS: ALKALINE PHOSPHATASE 170 IU/L (3-129)
[2017-12-15 21:43] LABS: GFR ESTIMATE (CALCULATED) > 59 mL/min/
[2017-12-15 21:44] LABS: AST (GOT) 24 IU/L (2-34); DIRECT BILIRUBIN 0.1 mg/dL (0.0-0.3); TROP-I INTERPRETATION NEGATIVE; TROPONIN-I < 0.01 ng/mL (0.0-0.30); UREA NITROGEN (BUN) 13 mg/dL (9-23)
[2017-12-15 21:46] LABS: ALT (GPT) 40 IU/L (3-49)
[2017-12-16 00:17] VITALS: BP 167/95
[2017-12-16 03:51] VITALS: BP 112/61
[2017-12-16 07:30] VITALS: BP 118/92
[2017-12-16] MEDS ORDERED: SUMATRIPTAN SUC25 MG PO (11:12)
[2017-12-16 12:38] VITALS: BP 118/71
== END 2017-12-16 15:41 | disposition home or self-care (01) ==
LOC: EME 19:06 → EDOF 22:27 → ENRESERV 22:31 → EDOF 23:06 → ENRESERV 23:08 → 4SOUTH 12-16 00:07
PROVIDERS: Emergency Medicine; Nurse Practitioner Family
DX: G43.109 Migraine with aura, not intractable, without status migrainosus (principal); I67.5 Moyamoya disease; Z86.73 Personal history of transient ischemic attack (TIA), and cerebral infarction without residual deficits; G40.909 Epilepsy, unspecified, not intractable, without status epilepticus; E66.01 Morbid (severe) obesity due to excess calories; Z68.41 Body mass index [BMI] 40.0-44.9, adult; F11.20 Opioid dependence, uncomplicated; G89.29 Other chronic pain; M79.7 Fibromyalgia; F32.9 Major depressive disorder, single episode, unspecified; F41.9 Anxiety disorder, unspecified; Z91.19 Patient's noncompliance with other medical treatment and regimen; Q27.30 Arteriovenous malformation, site unspecified; Z79.02 Long term (current) use of antithrombotics/antiplatelets; Z79.82 Long term (current) use of aspirin; Z88.1 Allergy status to other antibiotic agents; Z88.8 Allergy status to other drugs, medicaments and biological substances; Z91.048 Other nonmedicinal substance allergy status
CPT/HCPCS: 70450; 70496; 70498; 71046; 72110; 80048; 80076; 83880; 84484; 85027; 85610; 85730; 93005; 99281; 99285; G0378; G8978 GP CH; G8979 GP CH; G8980 GP CH; J1200; J1644; J1885; J2765; J2930; J7030

== ENCOUNTER 2018-01-14 10:45 | Emergency (ER) | payer OTHER ==
[~2018-01-14] VITALS: Ht 154.9 cm; Wt 105.6 kg
[~2018-01-14 10:45] MED LIST changes: +SUMATRIPTAN SUC25 MG PO
[2018-01-14 12:07] LABS: HEMOGLOBIN 13.7 G/DL (11.9-15.5); MCH 29.9 PG (29.0-34.0); MCHC 33.4 G/DL (30.0-36.0); MCV 89.5 FL (83-99); PLATELET COUNT 308 K/uL (156-360); RBC DIS.WIDTH-CV 13.2 % (11.8-14.6); RBC DIS.WIDTH-SD 43.2 % (39-53); RED BLOOD COUNT 4.58 M/uL (3.80-5.20); WHITE BLOOD COUNT 6.6 K/uL (4.1-10.2)
[2018-01-14 12:24] LABS: CHLORIDE 105 mEq/L (99-109); POTASSIUM 5.3 mEq/L (3.7-5.4); SODIUM 139 mEq/L (136-147)
[2018-01-14 12:26] LABS: GLUCOSE 102 mg/dL (70-99)
[2018-01-14 12:30] LABS: CREATININE 0.9 mg/dL (0.6-1.3); GFR ESTIMATE (CALCULATED) > 59 mL/min/; UREA NITROGEN (BUN) 16 mg/dL (9-23)
[2018-01-14 12:36] LABS: TROP-I INTERPRETATION NEGATIVE; TROPONIN-I < 0.01 ng/mL (0.0-0.30)
[2018-01-14 15:00] VITALS: BP 132/93
== END 2018-01-14 15:51 | disposition home or self-care (01) ==
LOC: EME 10:45
PROVIDERS: Emergency Medicine
DX: I26.99 Other pulmonary embolism without acute cor pulmonale (principal); M79.7 Fibromyalgia; F31.9 Bipolar disorder, unspecified; F41.9 Anxiety disorder, unspecified; F32.9 Major depressive disorder, single episode, unspecified; I67.5 Moyamoya disease; Z79.01 Long term (current) use of anticoagulants; Z87.442 Personal history of urinary calculi; Z86.73 Personal history of transient ischemic attack (TIA), and cerebral infarction without residual deficits; Z90.49 Acquired absence of other specified parts of digestive tract; Z88.1 Allergy status to other antibiotic agents; Z88.5 Allergy status to narcotic agent
CPT/HCPCS: 71046; 80048; 84484; 85027; 93005; 99281; 99285; J2550

== ENCOUNTER 2018-01-15 12:24 | Inpatient (IN) | payer OTHER ==
[~2018-01-15] VITALS: Ht 154.9 cm; Wt 103.0 kg
[2018-01-15 13:22] LABS: BASOPHIL (%) 0.6 % (0-1); EOSINOPHIL (%) 1.7 % (0-5); EOSINOPHIL COUNT 0.1 K/uL (0-0.3); HEMOGLOBIN 13.5 G/DL (11.9-15.5); IMMATURE GRANULOCYTE (%) 0.3 % (0.0-0.7); LYMPHOCYTE (%) 30.7 % (15-42); LYMPHOCYTE COUNT 2.1 K/uL (1.0-2.8); MCH 29.9 PG (29.0-34.0); MCHC 32.1 G/DL (30.0-36.0); MCV 93.1 FL (83-99); MONOCYTE (%) 7.5 % (3-12); MONOCYTE COUNT 0.5 K/uL (0-0.8); NEUTROPHIL (%) 59.2 % (45-76); NEUTROPHIL COUNT 4.1 K/uL (1.8-6.4); PLATELET COUNT 341 K/uL (156-360); RBC DIS.WIDTH-CV 13.5 % (11.8-14.6); RBC DIS.WIDTH-SD 46.1 % (39-53); RED BLOOD COUNT 4.51 M/uL (3.80-5.20); WHITE BLOOD COUNT 6.9 K/uL (4.1-10.2)
[2018-01-15 13:30] LABS: INTER. NORMALIZED RATIO 1.7
[2018-01-15 13:32] LABS: PTT 37.6 SEC (25-37)
[2018-01-15 13:38] LABS: CHLORIDE 109 mEq/L (99-109); POTASSIUM 4.3 mEq/L (3.7-5.4); SODIUM 143 mEq/L (136-147)
[2018-01-15 13:40] LABS: GLUCOSE 83 mg/dL (70-99)
[2018-01-15 13:43] LABS: SERUM ETHYL ALCOHOL < 10 mg/dL; TROP-I INTERPRETATION NEGATIVE; TROPONIN-I < 0.01 ng/mL (0.0-0.30)
[2018-01-15 13:44] LABS: GFR ESTIMATE (CALCULATED) > 59 mL/min/
[2018-01-15 13:45] LABS: UREA NITROGEN (BUN) 21 mg/dL (9-23)
[2018-01-15 13:47] LABS: LIPASE 37 U/L (1.0-51.0)
[2018-01-15 13:54] LABS: QUANTITATIVE HCG < 4.0 MIU/ML
[2018-01-15 14:06] LABS: APPEARANCE CLEAR ((CLEAR)); BILIRUBIN NEGATIVE; BLOOD NEGATIVE; COLOR YELLOW ((YELLOW)); GLUCOSE (STRIP) NEGATIVE; KETONES NEGATIVE; LEUKOCYTES NEGATIVE; NITRITE NEGATIVE; PROTEIN (STRIP) 30; SPECIFIC GRAVITY 1.038 (1.000-1.030); UCUL ADDED? NO
[2018-01-15 14:54] LABS: AMPHETAMINE NEGATIVE (500 ng/mL); BARBITURATES NEGATIVE (200 ng/mL); BENZODIAZEPINES NEGATIVE (150 ng/mL); BUPRENORPHINE NEGATIVE (10 ng/mL); COCAINE NEGATIVE (150 ng/mL); METHADONE NEGATIVE (200 ng/mL); METHAMPHETAMINE NEGATIVE (500 ng/mL); OPIATES (MORPHINE) PRESUMPTIVE POSITIVE (100 ng/mL); OXYCODONE NEGATIVE (100 ng/mL); PHENCYCLIDINE NEGATIVE (25 ng/mL); PROPOXYPHENE NEGATIVE (300 ng/mL); THC CANNABINOIDS NEGATIVE (50 ng/mL); TRICYCLIC ANTIDEPRESSANTS NEGATIVE (300 ng/mL)
[2018-01-15 18:09] LABS: HDL CHOLESTEROL 57 MG/DL (Desirable>=50); LDL CHOLESTEROL 31 mg/dL (Desirable<100); NON-HDL CHOLESTEROL 47 mg/dL (Desirable<160); TOTAL CHOLESTEROL 104 mg/dL (Desirable<200); TRIGLYCERIDES 79 MG/DL (Normal: <150)
[2018-01-15 18:14] LABS: ERTH.SED.RATE 38 MM/HR (0-20)
[2018-01-15 18:15] LABS: TROP-I INTERPRETATION NEGATIVE; TROPONIN-I < 0.01 ng/mL (0.0-0.30)
[2018-01-15 20:50] VITALS: BP 129/80
[2018-01-16 00:07] VITALS: BP 134/80
[2018-01-16 01:35] LABS: TROP-I INTERPRETATION NEGATIVE; TROPONIN-I < 0.01 ng/mL (0.0-0.30)
[2018-01-16 03:59] VITALS: BP 133/73
[2018-01-16 07:42] VITALS: BP 122/78
[2018-01-16 10:13] LABS: HEMOGLOBIN A1c (GLYCOHEMOGLOB) 5.5 % (Below 5.7)
[2018-01-16 11:11] VITALS: BP 124/80
[2018-01-16] MEDS ORDERED: XARELTO15 MG PO (11:58)
== END 2018-01-16 12:30 | disposition home or self-care (01) | DRG 103 ==
LOC: EME 12:24 → 5SOUTH 16:53 → EDOF 16:53 → CANRESERV 17:01 → ENRESERV 17:01 → 5SOUTH 20:45
PROVIDERS: Emergency Medicine; Internal Medicine
DX: G43.109 Migraine with aura, not intractable, without status migrainosus (principal); G81.94 Hemiplegia, unspecified affecting left nondominant side; R20.2 Paresthesia of skin; R29.810 Facial weakness; I67.5 Moyamoya disease; G93.89 Other specified disorders of brain; E66.01 Morbid (severe) obesity due to excess calories; Z68.41 Body mass index [BMI] 40.0-44.9, adult; G40.909 Epilepsy, unspecified, not intractable, without status epilepticus; M79.7 Fibromyalgia; G89.29 Other chronic pain; F32.9 Major depressive disorder, single episode, unspecified; F41.9 Anxiety disorder, unspecified; Z91.19 Patient's noncompliance with other medical treatment and regimen; Z91.14 Patient's other noncompliance with medication regimen; Z86.711 Personal history of pulmonary embolism; Z86.73 Personal history of transient ischemic attack (TIA), and cerebral infarction without residual deficits; Z96.89 Presence of other specified functional implants; Z90.710 Acquired absence of both cervix and uterus; Z79.01 Long term (current) use of anticoagulants; Z79.891 Long term (current) use of opiate analgesic; Z79.02 Long term (current) use of antithrombotics/antiplatelets; Z79.82 Long term (current) use of aspirin; Z79.899 Other long term (current) drug therapy; Z83.3 Family history of diabetes mellitus; Z80.1 Family history of malignant neoplasm of trachea, bronchus and lung
CPT/HCPCS: 70450; 80048; 80061; 81003; 82150; 83036; 83690; 84484; 84702; 84999; 85025; 85610; 85651; 85730; 86850; 86900; 86901; 93005; 99281; 99284; G0480; J1644; J1885; J2405; J2550; J3030